=== PATIENT | male | born 1995 | race African-American/Black ===

== ENCOUNTER 2018-11-03 02:52 | Emergency (ER) | payer SELFPAY ==
[~2018-11-03] VITALS: Ht 185.4 cm; Wt 118.2 kg
[2018-11-03 03:26] LABS: BASO % 0.3 % (0.0-2.0); EOS % 0.5 % (0-4.0); GRAN # 2.6 (1.4-6.5); GRAN % 46.1 % (42.2-75.2); HEMATOCRIT 45.1 % (42.0-52.0); HEMOGLOBIN 15.2 g/dl (13.5-18.0); LYMPH # 2.6 (1.2-3.4); LYMPH % 44.7 % (20.0-51.0); MEAN CELL VOLUME 85 fl (80.0-100.0); MEAN CORPUSCULAR HEMOGLOBIN 29 pg (27.0-31.0); MEAN CORPUSCULAR HGB CONC 34 g/dl (33.0-37.0); MONO # 0.5 (0.1-0.6); MONO % 8.2 % (1.7-9.3); PLATELET COUNT 229 K/mm3 (130-400); RED BLOOD COUNT 5.33 M/mm3 (4.20-5.60); REDCELL DISTRIBUTION WIDTH-CV 12.3 % (11.5-14.5)
[2018-11-03 03:32] LABS: PROTHROMBIN TIME 11.5 SECONDS (9.7-12.8)
[2018-11-03 03:34] LABS: PARTIAL THROMBOPLASTIN TIME 26.5 SECONDS (26.0-37.0)
[2018-11-03 03:38] LABS: ALBUMIN 4.9 gm/dL (3.5-5.0); BILIRUBIN,TOTAL 0.4 mg/dL (0.0-1.0); CALCIUM 9.5 mg/dL (8.4-10.2); CREATININE, serum 1.21 mg/dL (0.66-1.25); POTASSIUM 3.5 mmol/L (3.4-5.0); TOTAL PROTEIN 8.2 gm/dL (6.4-8.2)
[2018-11-03 03:40] VITALS: BP 143/94; PULSE 89
[2018-11-03 03:50] VITALS: TEMP 98.5
== END 2018-11-03 04:03 | disposition short-term general hospital (02) ==
LOC: COL.ER 02:52
PROVIDERS: Emergency Medicine
DX: S31.109A Unspecified open wound of abdominal wall, unspecified quadrant without penetration into peritoneal cavity, initial encounter (principal); S51.801A Unspecified open wound of right forearm, initial encounter; X95.9XXA Assault by unspecified firearm discharge, initial encounter; Y92.410 Unspecified street and highway as the place of occurrence of the external cause
CPT/HCPCS: J0690; J1170; J7030